=== PATIENT | female | born 1975 | race Caucasian/White ===

== ENCOUNTER → 2018-02-24 | Outpatient (CLI) | payer OTHER ==
[~2018-02-24] MED LIST: AMBIEN 10 MG TA10 MG PO; AMBIEN 5 MG TABL5 M1 PO; AUGMENTIN 875875 MG PO; B12; BACTROBAN22 GM TOP; BIOTIN5 M1 PO; DEXAMETHASONE 44 M1 PO; HYDROCODON-ACE1 EACH PO; HYDROCODONE-AP1 EAC6 PO; LEXAPRO20 MG PO; MOBIC15 MG PO; MOBIC7.5 MG PO; NOLVADEX20 MG PO; NORCO 5-325 TA1 EACH PO; ORPHENADRINE PO; PERCOCET PO; RELAFEN750 MG PO; SENNA-LAX8.6 MG PO; TOMOXIFEN PO; TOPAMAX50 MG PO; TRAMADOL 50 MG50 MG PO; VALIUM5 MG PO; VENLAFAXIN75 MG/1 T2 PO; VITAMIN D 5050000 I1 PO; VITAMIN D3400 UNIT; XANAX 0.5 MG0.5 M1 PO; XANAX 0.5 MG0.5 MG PO
--- NOTE | 2018-02-26 09:51 | PAINCON ---
[address] [address] PAIN MANAGEMENT CONSULTATION Name: DOMINGO BECKWITH Room: [facility] Abdalla#: [id number] Admission: 02/24/18 Attend Phys: Nicolette Ervin Discharge: Date of : 73 Report #: [id number] THIS REPORT FOR: //name// CC: Graciela Alcantara DATE OF SERVICE: 02/24/2018 The patient is a 43-year-old female being treated for cervical radiculopathy, now has appeared to be a component of cervical spondylosis. She was last seen in the pain clinic 01/20/2018. Continued on hydrocodone for pain. She prior had a cervical epidural injection in 06/2017. Had very good relief of radicular symptoms for about 6 months, pain has begun to recur. Prior cervical injection 11/05/2016 had afforded relief for about 6 months as well. The patient returns to pain clinic today noting pain has recurred, though it is primarily in the neck and upper shoulders. PHYSICAL EXAMINATION: Actually shows tenderness to palpation at the base of the cervical spine. There is really no overlying muscle spasm. Appears to be more facet related pain. She has again prior had more radicular symptoms, though the radicular component seems to be fairly nominal. Upper extremity strength is symmetric. Hand grasp is good. Cervical range of motion again modestly limited, modestly positive Lhermitte's but the primary continuous pain concern is more at the base of the spine and more exacerbated with axial loading. MRI is somewhat dated from 2012. It did show at that time a broad-based central disk protrusion at C6-C7. Given ongoing pain symptoms and component of what appears to be some cervical spondylosis, we will request authorization for MRI of the cervical spine. We will see the patient after diagnostic study and move forward with consideration for facet joint injection under fluoroscopy versus a repeat cervical epidural injection depending on clinical exam and diagnostic findings at that time. We reviewed the fact that opiate medications are being used to provide analgesia adequate to support activities of daily living, not attempting to achieve a specific pain score on the 0-10 Visual Analog Scale. The current opiate medications are providing sufficient analgesia to allow the patient to participate in activities of daily living. The patient is not exhibiting any aberrant behavior suggestive of drug diversion. The patient is not having any adverse reactions to medications. The patient is not suffering from daytime somnolence or mental acuity changes. The patient is managing opiate-induced constipation with appropriate ezrd-wyg-lfircnz agents and dietary considerations. The patient was counseled on concern for caution with operating a motor vehicle [place] [address] PAIN MANAGEMENT CONSULTATION Name: DOMINGO BECKWITH Room: [facility] Abdalla#: [id number] Admission: 02/24/18 Attend Phys: Nicolette Ervin Discharge: Date of : 73 Report #: [id number] A physical exam was performed and the patient's functional status was evaluated. All patients with back pain were advised against the bed rest greater than 4 days and were advised to return to normal activities. Pain score assessment was noted and the treatment plan was reviewed with the patient. All current medications, both prescribed and OTC were reviewed and reconciled on the electronic medical record. Tobacco screening was accomplished and smoking cessation was advised when indicated. BMI was noted and diet/exercise modification was recommended for all patients following outside normal parameters. I reviewed with the patient today their responsibilities to safeguard prescription medications, reviewed their responsibility to utilize medications only as prescribed by the physician. They are to seek and receive pain medications only from 1 physician group ( [facility]). They are to use 1 pharmacy and keep the clinic informed if they change pharmacies. Their responsibilities include making followup visits in a timely fashion and to avoid abrupt discontinuation of medication usage. Their responsibilities further include bringing their medications (bottles from the pharmacy with residual pills) to the visit for possible confirmation of pill counts and the patient understands it is their responsibility to submit to random drug screens to ensure both that the medications prescribed are present, and that no other controlled substances are present. All prescriptions provided today were generated electronically. Taken the liberty of writing for hydrocodone 5/325 one tablet 3-4 times a day, limit 100 tablets for 30 days. I wrote for prescription to release today and 4 weeks. We will continue meloxicam 15 mg 1 a day, 60 tablets with 3 refills. Discharged in good and stable condition. Follow up after MRI. <ELECTRONICALLY SIGNED> By: Julien Alcantara DO 02/26/18 0951 [id number] [id number] Alcantara DO /ramón
== END ==
LOC: M.PC 02:33
DX: M47.22 Other spondylosis with radiculopathy, cervical region (principal)

== ENCOUNTER → 2018-03-31 | Outpatient (CLI) | payer OTHER ==
--- NOTE | 2018-04-05 08:35 | PAINCON ---
[address] [address] PAIN MANAGEMENT CONSULTATION Name: TANGDOMINGO T [id number] Admission: 03/31/18 Attend Phys: Nicolette Ervin Discharge: Date of : 73 Report #: [id number] THIS REPORT FOR: //name// CC: Graciela Alcantara DATE OF SERVICE: 03/31/2018 The patient is a very pleasant 43-year-old female, prior seen for symptomatic cervical radiculopathy and chronic pain syndrome. She was last seen in pain clinic back in January. Continued on low dose hydrocodone 5/325 one tablet 3-4 times a day, limit 100 tablets for 30 days. Typically, this lasts her a little longer. We repeated an MRI of the cervical spine due to ongoing cervical radicular symptoms, this was accomplished 03/06/2018. On comparing this to the prior 2012 study, there is a progressive moderate to severe disk degenerative changes at C6-C7 with moderate size disk demonstrating mass effect on the ventral cord, C5-C6 similarly notes canal narrowed to 0.6 cm. PHYSICAL EXAMINATION: Shows positive Lhermitte's sign with pain in the neck, shoulder and arms burning dysesthesia. She rates 7-8 on VAS. PHYSICAL EXAMINATION: Shows 5 feet 6 inches, 189 pounds female, BMI is 30 kilograms per meter squared. Blood pressure 139/85, pulse 77, respirations are 18. Hand grasp is symmetric. ASSESSMENT AND RECOMMENDATIONS: 1. Symptomatic cervical radiculopathy clinical exam and history. Recommendation is repeat cervical projection fluoroscopy today. 2. Acute exacerbation of cervical radicular symptoms, chronic neuropathic pain requiring complex medication management. Recommendation is renew hydrocodone 5/325, one tablet 3-4 times a day, limit 100 tablets for 30 days. I have taken the liberty of writing for 2 months of current medication. 3. Symptomatic cervical radiculopathy. Procedure, cervical epidural injection under fluoroscopy. PROCEDURE NOTE: After written and informed consent was obtained including risk of dural puncture, spinal cord trauma, paralysis and increased pain, the patient was taken to the fluoroscopy suite and placed in the prone position, with appropriate abdominal bolstering, neck was flexed, palms under the thighs. Skin was prepped with ChloraPrep. Sterile draping was applied. Skin wheal with 1% Xylocaine was raised. A 22-gauge 3-1/2 inch epidural Tuohy needle was placed via a midline approach at the C7-T1 interspace, advanced under biplanar fluoroscopy using continuous loss of resistance. With appropriate loss of resistance at the expected depth on lateral view, the glass loss of resistance syringe was disconnected. A low volume extension tubing was connected to the needle and a 5 mL syringe. Negative aspiration for cerebrospinal [place] [address] PAIN MANAGEMENT CONSULTATION Name: DOMINGO BECKWITH Stephen Room: [facility] Abdalla#: [id number] Admission: 03/31/18 Attend Phys: Nicolette Ervin Discharge: Date of : 73 Report #: [id number] was noted. A 1 mL of Omnipaque was injected which showed spread within the epidural space on biplanar fluoroscopy. This was followed with 80 mg of triamcinolone plus 1 mL of 1.5% preservative Xylocaine. Needle was withdrawn to the interspinous ligament, 0.5 mL of Xylocaine was used to flush the needle. The needle was then completely withdrawn. The area was cleansed. Band-Aid was applied. The patient was allowed to move off the procedure table and ambulated to the recovery room, monitored for an appropriate period of time, discharged in good and stable condition. <ELECTRONICALLY SIGNED> By: Julien Alcantara DO 04/05/18 0835 1431 [id number] Alcantara DO /nt
== END | disposition home or self-care (01) ==
LOC: M.PC 03:02
DX: M54.12 Radiculopathy, cervical region (principal); G89.4 Chronic pain syndrome; Z79.891 Long term (current) use of opiate analgesic; Z88.2 Allergy status to sulfonamides; Z91.040 Latex allergy status; Z88.8 Allergy status to other drugs, medicaments and biological substances; Z79.899 Other long term (current) drug therapy

== ENCOUNTER → 2018-05-26 | Outpatient (CLI) | payer OTHER ==
--- NOTE | 2018-05-27 07:27 | PAINCON ---
[address] [address] PAIN MANAGEMENT CONSULTATION Name: DOMINGO BECKWITH Room: [facility] Rm#: [id number] Admission: 05/26/18 Attend Phys: Nicolette Ervin Discharge: Date of : 73 Report #: [id number] THIS REPORT FOR: //name// CC: Graciela Alcantara The patient is a very pleasant 43-year-old female, long treated by myself. She was initially treated for symptomatic cervical radiculopathy. Cervical epidural injection back in June 2017. She has been managed with hydrocodone 10/325 one tablet 3-4 times a day, limit 100 tablets for 30 days. Last seen in the pain clinic on 03/31/2018. We did a single epidural injection at that time with some incremental improvement of right-sided pain, still has pain in the neck and left side. She has a burning dysesthesia in the neck and shoulder pain is exacerbated with cervical range of motion. PHYSICAL EXAMINATION: Shows a pleasant 43-year-old female, BMI is 30.3 kilograms per meter squared. Blood pressure 155/81, pulse 90S, respirations 16. Rates her subjective pain score 5-6 on a VAS. Positive Lhermitte's. Slightly decreased limited range of motion, pain radiating into the axilla, slight decreased deltoid strength. Diagnostic findings from 03/16/2018 notes C5-C6 to have a new diffuse large posterior disk bulge with mass effect on the cord, thecal sac narrowed to 0.6 cm. The level below the C6-C7 has moderate to severe degenerative disk changes, which also has progressed since the prior study (compared to study 03/08/2013). ASSESSMENT: Symptomatic cervical radiculopathy by clinical exam and history. RECOMMENDATIONS: 1. Repeat epidural injection under fluoroscopy today. 2. Continue current medication including meloxicam 15 mg 1 a day and hydrocodone 5/325. The patient was given a renewal of her hydrocodone prescription at last visit. We will have her follow up in 1 month to reevaluate efficacy of interventional therapy. She will see Dr. Puma Wyatt. May require referral to Neurosurgery and a repeat cervical epidural injection depending on clinical exam. May require renewal of medication as well. ASSESSMENT: Symptomatic cervical radiculopathy. PROCEDURE: Cervical epidural injection under fluoroscopy. PROCEDURE NOTE: After written and informed consent was obtained including risk of dural puncture, spinal cord trauma, paralysis and increased pain, the patient was taken to the fluoroscopy suite and placed in the prone position, with appropriate abdominal bolstering, neck was flexed, palms [place] [address] PAIN MANAGEMENT CONSULTATION Name: DOMINGO BECKWITH Room: [facility] Abdalla#: [id number] Admission: 05/26/18 Attend Phys: Nicolette Ervin Discharge: Date of : 73 Report #: [id number] Skin was prepped with ChloraPrep. Sterile draping was applied. Skin wheal with 1% Xylocaine was raised. A 22-gauge 3-1/2 inch epidural Tuohy needle was placed via a midline approach at the C7-T1 interspace, advanced under biplanar fluoroscopy using continuous loss of resistance. With appropriate loss of resistance at the expected depth on lateral view, the glass loss of resistance syringe was disconnected. A low volume extension tubing was connected to the needle and a 5 mL syringe. Negative aspiration for cerebrospinal fluid or blood was noted. A 1 mL of Omnipaque was injected which showed spread within the epidural space on biplanar fluoroscopy. This was followed with 80 mg of triamcinolone plus 1 mL of 1.5% preservative Xylocaine. Needle was withdrawn to the interspinous ligament, 0.5 mL of Xylocaine was used to flush the needle. The needle was then completely withdrawn. The area was cleansed. Band-Aid was applied. The patient was allowed to move off the procedure table and ambulated to the recovery room, monitored for an appropriate period of time, discharged in good and stable condition. <ELECTRONICALLY SIGNED> By: Julien Alcantara DO 05/27/18 0727 1316 10Julien Alcantara DO /nt
== END | disposition home or self-care (01) ==
LOC: M.PC 05:03
DX: M54.12 Radiculopathy, cervical region (principal); G89.29 Other chronic pain; Z98.890 Other specified postprocedural states; Z79.899 Other long term (current) drug therapy; Z79.891 Long term (current) use of opiate analgesic; Z91.040 Latex allergy status; Z88.2 Allergy status to sulfonamides; Z88.8 Allergy status to other drugs, medicaments and biological substances

== ENCOUNTER → 2018-07-15 | Outpatient (CLI) | payer OTHER ==
--- NOTE | 2018-08-06 17:38 | PAINCON ---
[address] [address] PAIN MANAGEMENT CONSULTATION Name: TANGDOMNIGO T Room: [facility] Abdalla#: [id number] Admission: 07/15/18 Attend Phys: Nicolette Ervin Discharge: Date of : 73 Report #: [id number] THIS REPORT FOR: //name// CC: CHELSEA Morales DATE OF SERVICE: 07/15/2018 FOLLOWUP HISTORY: Neck pain with pain radiating down to the arms, hands. HISTORY OF PRESENT ILLNESS: The patient is a 43-year-old female who has been followed in the pain clinic for a number of years by Dr. Julien Alcantara. This is my first visit with the patient. She has been treated in the past for symptomatic cervical radiculopathy. She has undergone cervical epidural steroid injections and gleaned them beneficial. She also has been helped with use of hydrocodone 3-4 tablets daily. She has undergone a cervical epidural steroid injection and feels that her pain has returned to the level she would like to proceed with another. She has some burning dysesthesias in her neck and shoulder and exacerbated with cervical range of motion. After the last injection in 04/2018, she noted greater than 75% improvement. Rates her pain as a 2-3. She has continued to use hydrocodone and meloxicam to help curtail her pain. She would like to have her medications renewed. The patient has returned to the pain clinic for renewal of her pain scrips. ALLERGIES: PHENYLPROPANOLAMINE, PSEUDOEPHEDRINE, DIPHENHYDRAMINE, TRIPELENNAMINE, TRIPROLIDINE, CLEMASTINE, SULFA, MORPHINE, MENTHOL, PREDNISONE, LATEX, FENTANYL. MEDICATIONS: Vitamin D3 400 2000 units daily, vitamin D 50,000 international units weekly, hydrocodone 5/325 one p.o. q. 4-6 hours p.r.n., Mobic 15 mg daily, tamoxifen 20 mg, Effexor 75 mg. PAST MEDICAL HISTORY: Generally unremarkable. PAST SURGICAL HISTORY: Left hand ganglion cyst removal in 1996, right hand ganglion cyst removal in 1998. 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 REVIEW OF SYSTEMS: Headaches, hearing loss/ringing in the ears, palpitations, varicose veins, fatigue, frequent lightheadedness, dizziness, numbness and tingling sensation. LABORATORY DATA: MRI of the lumbar spine dated 03/16/2008. 1. C5/C6 moderate degenerative loss of [place] [address] PAIN MANAGEMENT CONSULTATION Name: DOMINGO BECKWITH Stephen Room: [facility]#: [id number] Admission: 07/15/18 Attend Phys: Nicolette Ervin Discharge: Date of : 73 Report #: [id number] previous with new diffuse large posterior disk bulge with a mass effect on the ventral cord. Both foramen are approximately moderately narrowed. Thecal sac 0.6 cm AP. 2. C6-C7 icddiqel-zn-kmowli degenerative disk space narrowing has progressed since previously with circumferential moderate size disk bulge demonstrating mass effect on the ventral cord. Both foramina are moderately narrowed. Thecal sac 0.7 cm AP. 3. C7/T1 intervertebral disk facets and foramen appear normal. Thecal sac 0.9 cm. PAIN CLINIC ASSESSMENT: 1. Osteoarthritis/rheumatoid arthritis. The patient has not been treated for osteoarthritis and rheumatoid arthritis. 2. Height 5 feet 6 inches, weight 185 pounds, BMI is 29.9. VITAL SIGNS: Blood pressure 133/72, heart rate 78, respiratory rate 16, room air saturation 97%, temperature 98.4. Pain score 2-3/10. 3. Fall risk. The patient has not fallen in the last 3 months. 4. Blood thinner. The patient is not on blood thinning medication. 5. History of hypertension. The patient has not been treated for hypertension. 6. Opioid therapy greater than 6 weeks. The patient does receive hydrocodone from 1 source of pain clinic. 7. Risk assessment tool. 8. Functional assessment tool. 9. Recreational drug use. The patient stopped smoking in 2003. Smoked one and half pack of cigarettes per day for 20 years. Alcohol monthly. PHYSICAL EXAMINATION: GENERAL: The patient is a well-developed, well-nourished white female. Appears her stated age. She is alert and oriented x 3. Affect is appropriate. Speech is fluent. HEENT: Normocephalic, atraumatic. Extraocular eye muscles intact. Sclerae nonicteric. NECK: With some soreness. Deep tendon reflexes are +2 for the biceps, trace on the knees, trace +1 on the ankles. The patient without significant scoliosis, kyphosis or lordosis. Muscle chaplaincy strength is judged to be 5/5 for the major muscle groups in the upper extremity. IMPRESSION: History of cervical radiculopathy, which improves with cervical epidural steroid injections. RECOMMENDATIONS: We will continue with the patient's current use of hydrocodone 5/325 one p.o. 4-6 hours p.r.n. The patient will call us if [place] [address] PAIN MANAGEMENT CONSULTATION Name: DOMINGO BECKWITH Room: [facility]#: [id number] Admission: 07/15/18 Attend Phys: Nicolette Ervin Discharge: Date of : 73 Report #: [id number] We would like to thank you for letting us participate in her care. We hope she continues to improve. <ELECTRONICALLY SIGNED> By: Britany Wyatt MD 08/06/18 1738 1519 1906N. Puma Wyatt MD /nt
== END ==
LOC: M.PC 03-10 11:00
DX: M54.12 Radiculopathy, cervical region (principal)

== ENCOUNTER → 2018-09-09 | Outpatient (CLI) | payer OTHER ==
--- NOTE | 2018-09-13 10:30 | PAINCON ---
[address] [address] PAIN MANAGEMENT CONSULTATION Name: DOMINGO BECKWITH Room: [facility] Abdalla#: [id number] Admission: 09/09/18 Attend Phys: Britany Wyatt MD Discharge: Date of : 73 Report #: [id number] THIS REPORT FOR: //name// CC: Graciela Wyatt DATE OF SERVICE: 09/09/2018 FOLLOWUP COMPLAINT: Pain in the shoulders, neck, and mid back. FOLLOWUP HISTORY: The patient is a 43-year-old female, who has been followed in the pain clinic because of chronic pain. She has had some cervical problems. She has undergone cervical epidural steroid injections. She has gleaned benefits from these. She returns today indicating that she is having pain and discomfort in her neck in the midline area as well as some pain in the left and the right shoulder areas. She feels that an injection to the trigger point areas might be helpful. She does continue to have some burning dysesthesias in her neck and shoulder. She notes some limited rotation in range of motion because of this pain and discomfort. She continues to use hydrocodone. She feels that this is helpful. She feels that a trigger point might be helpful at this juncture. She is not sure, but has heard about fibromyalgia and wonders whether or not this is a problem for her. CURRENT MEDICATIONS: The patient is on vitamin D3 daily, vitamin D 50,000 international units weekly, hydrocodone 5/325 one p.o. q.4-6 hours p.r.n., Mobic 15 mg daily, tamoxifen 20 mg, and Effexor 75 mg. ALLERGIES: THE PATIENT IS ALLERGIC TO PHENYLPROPANOLAMINE, PSEUDOEPHEDRINE, DIPHENHYDRAMINE, TRIPELENNAMINE, TRIPROLIDINE, CLEMASTINE, SULFA, MORPHINE, MENTHOL, PREDNISONE, LATEX, AND FENTANYL. PAIN CLINIC ASSESSMENT AND PQRS: 1. Osteoarthritis/rheumatoid arthritis. The patient is not being treated for rheumatoid arthritis or osteoarthritis. 2. Pain score is 4/10. 3. Fall risk. The patient has not fallen in the last 3 months. 4. Blood thinner. The patient is not on a blood thinning medication. 5. History of hypertension. The patient is not being treated for hypertension. 6. Opioid therapy greater than 6 weeks. The patient does receive hydrocodone from 1 source, pain clinic. 7. Risk assessment tool. 8. Functional assessment tool. 9. Recreational drug use. The patient denied. 10. The patient stopped smoking in 2003. She smokes 1/2 pack of cigarettes a day for the past 20 years. 11. Alcohol, [place] [address] PAIN MANAGEMENT CONSULTATION Name: DOMINGO BECKWITH [id number] Admission: 09/09/18 Attend Phys: Britany Wyatt MD Discharge: Date of : 73 Report #: [id number] PHYSICAL EXAMINATION: GENERAL: The patient is a well-developed and well-nourished white female. She appears her stated age. She is alert and oriented x 3. Her affect is appropriate. Speech is fluent. Height is 5 feet 6 inches, weight is 180 pounds, and BMI is 30. VITAL SIGNS: Blood pressure is 146/82, heart rate is 71, respiratory rate is 16, room air saturation is 97%, and temperature is 98.2. HEENT: Normocephalic, atraumatic. Extraocular eye muscles intact. Sclerae nonicteric. NECK: The patient has some soreness in the midline area at approximately T2. The patient also has some soreness in the left rhomboid area as well as pain and discomfort in the right rhomboid area. Deep tendon reflex does reproduce pain and discomfort she has in these areas. Overall, peoplesoft hrms developer strength is 5/5 for the major muscle groups in the upper extremity. Lower extremity muscle strength is judged to be 5/5 for the major muscle groups. IMPRESSION: 1. History of cervical radiculopathy, which has improved after cervical epidural steroid injections. 2. Myofascial pain involving the left and right rhomboid area as well as midline T2/T3 to palpation. RECOMMENDATIONS: We have discussed treatment options with the patient. She was wondering whether or not she has fibromyalgia. We have explained that most people with fibromyalgia have a number of at least 18 trigger points. She does not have those findings. She does have some areas of mild myofascial discomfort. She is having pain in the upper shoulder area on the left with rhomboids as well as about T2/T3 to palpation with midline pain and discomfort as well as some pain and discomfort on the right rhomboid area. Palpation in these areas reproduced her discomfort. The patient would like to proceed with trigger point injections to affected area. She does also complain of some burning sensation. We will consider possibility of trying gabapentin. She has not had this medication in the past. PROCEDURE NOTE: The patient was taken to the procedure area. Risks and benefits of the procedure were discussed. They include but are not limited to infection, increased muscle soreness. No improvement in muscle soreness, nerve damage, and pneumothorax. The patient elects to proceed. The patient was placed in the sitting position perpendicular to the bed. A chair was placed under her feet. Her back was sterilely prepped with a chlorhexidine solution. Trigger points were noted in the right as well as the left rhomboid area. A trigger point was noted in the midline area near T1/T3. Palpation reproduces discomfort. A 25-gauge needle was then advanced into the midline area. A total of 40 mg of triamcinolone with 10 mL of 0.5% bupivacaine was infiltrated in this area. The patient responded that indeed we were [place] [address] PAIN MANAGEMENT CONSULTATION Name: TANGDOMINGO Room: [facility]#: [id number] Admission: 09/09/18 Attend Phys: Britany Wyatt MD Discharge: Date of : 73 Report #: [id number] discomfort from the trigger points. Her left rhomboid area was identified, trigger point was noted. A 25-gauge needle was then advanced into this area. Aspiration did not reveal any air. A total of 8ml 0.5% bupivacaine was injected. The patient tolerated the second trigger point well. The third trigger point in the right rhomboid area was identified. A 25-gauge needle was then advanced into the area. The patient states this reproduced the discomfort. A total of 20 mg of triamcinolone and 8 mL of 0.5% bupivacaine was injected. The patient tolerated the procedure well. There were no complications. She remained in the pain clinic for an appropriate amount of time. She will follow up in the future as needed. We would like to thank you for letting us to participate in her care. We hope she continues to improve. She will call us if she has any complaints or has development of any breathing problems. <ELECTRONICALLY SIGNED> By: Britany Wyatt MD 09/13/18 1030 [id number]. Puma Wyatt MD /PMT
== END | disposition home or self-care (01) ==
LOC: M.PC 05:18
DX: M79.18 Myalgia, other site (principal); M54.12 Radiculopathy, cervical region; Z98.890 Other specified postprocedural states; Z79.891 Long term (current) use of opiate analgesic; Z91.040 Latex allergy status; Z88.8 Allergy status to other drugs, medicaments and biological substances; Z88.2 Allergy status to sulfonamides; Z79.899 Other long term (current) drug therapy

== ENCOUNTER → 2018-10-07 | Outpatient (CLI) | payer OTHER ==
--- NOTE | ~2018-10-07 | PAINCON ---
[address] [address] PAIN MANAGEMENT CONSULTATION Name: DOMINGO BECKWITH Room: [facility] Abdalla#: [id number] Admission: 10/07/18 Attend Phys: Britany Wyatt MD Discharge: Date of : 73 Report #: [id number] THIS REPORT FOR: //name// CC: Graciela Wyatt DATE OF SERVICE: 10/07/2018 FOLLOWUP COMPLAINT: Here for an injection. FOLLOWUP HISTORY: The patient is a 43-year-old female who has been seen in the pain clinic. She was seen in August. She underwent trigger point injections because of pain and discomfort. She has noticed that the pain is more problematic today. Continues to have pain that is radiating down into her upper neck, back and arms. She feels that the pain at this juncture is more from cervical radicular pain rather than trigger point pain. She has returned today with the thoughts of undergoing a cervical epidural steroid injection to help decrease pain and discomfort she is experiencing. She rates it as 5/10 at this juncture. She continues to use Silvis and Mobic to help decrease the pain. Feels her pain is more widespread at this juncture than it was in August. ALLERGIES: PHENYLPROPANOLAMINE, PSEUDOEPHEDRINE, DIPHENHYDRAMINE, TRIPELENNAMINE, TRIPROLIDINE, CLEMASTINE, SULFA, MORPHINE, MENTHOL, PREDNISONE, LATEX, FENTANYL. PAIN CLINIC ASSESSMENT AND PQRS: 1. Osteoarthritis/rheumatoid arthritis. The patient is not being treated for rheumatoid arthritis or osteoarthritis. 2. The height 5 feet 6 inches, weight 184 pounds. The BMI is 30. 3. Vital signs: Blood pressure 137/84, heart rate 70, respiratory rate 16, room air saturation 99%. Temperature 98.0. 4. Pain intensity 5/10. 5. Fall risk. The patient has not fallen in the last 3 months. 6. Blood thinner. The patient is not on a blood thinning medication. 7. Hypertension. The patient is not being treated for hypertension. 8. Opiate therapy greater than 6 weeks. The patient does receive hydrocodone through the pain clinic. 9. Risk assessment tool, low for opioid use. 10. Functional assessment tool. 11. Recreational drug use. The patient denies use of recreational drugs. 12. Tobacco: The patient stopped smoking in 2003. Smokes 1/2 pack of cigarettes per day for the past 20 years. 13. Alcohol: The patient denies other than monthly use of alcohol. PHYSICAL EXAMINATION: GENERAL: The patient is a well-developed, well-[place] [address] PAIN MANAGEMENT CONSULTATION Name: DOMINGO BECKWITH [id number] Admission: 10/07/18 Attend Phys: Britany Wyatt MD Discharge: Date of : 73 Report #: [id number] her stated age. She is alert and oriented x 3. Her affect is appropriate. Speech is fluent. HEENT: Normocephalic, atraumatic. Extraocular eye muscles intact. NECK: With some soreness in the midline area. Has some pain and discomfort that radiates in the neck and in the area of rhomboid down into her shoulders. IMPRESSION: 1. History of cervical radiculopathy, improved in the past after cervical epidural steroid injections. 2. Myofascial pain. RECOMMENDATIONS: We discussed treatment options with the patient. At this juncture, we will proceed with a cervical epidural steroid injection. Risks and benefits again of the procedure were discussed. They could include but are not limited to infection, increased muscle soreness, headache, worsening of pain, no improvement in pain and the patient elects to proceed. PROCEDURE NOTE: The patient was taken to the procedure area. She was assisted in getting on examination table. A pillow was placed under her shoulders to improve positioning. Fluoroscopy using anterior, posterior as well as lateral viewing were implemented. At C6-C7, the area had been sterilely prepped with Betadine. A 25-gauge needle was then advanced into this area and infiltrated with 0.25% bupivacaine. A 17-gauge Tuohy with loss of resistance technique was used to gain access to the epidural space. There was no CSF, heme or paresthesia. A total of 120 mg of triamcinolone was injected. The patient tolerated the procedure well. Fluoro time of about 15 seconds was used. The patient was then taken to the recovery room. She remained for an appropriate amount of time. She will follow up in the future as needed. We would like to thank you for letting us participate in her care. We hope she continues to improve. By: [id number]. Puma Wyatt MD /DREW
== END | disposition home or self-care (01) ==
LOC: M.PC 09-28 05:06
DX: M54.12 Radiculopathy, cervical region (principal); M79.18 Myalgia, other site; Z88.2 Allergy status to sulfonamides; Z91.040 Latex allergy status; Z88.8 Allergy status to other drugs, medicaments and biological substances; Z79.891 Long term (current) use of opiate analgesic; Z98.890 Other specified postprocedural states

== ENCOUNTER → 2018-11-04 | Outpatient (CLI) | payer OTHER ==
--- NOTE | 2018-11-05 17:20 | PAINCON ---
[address] [address] PAIN MANAGEMENT CONSULTATION Name: DOMINGO BECKWITH Room: [facility] Abdalla#: [id number] Admission: 11/04/18 Attend Phys: Britany Wyatt MD Discharge: Date of : 73 Report #: [id number] THIS REPORT FOR: //name// CC: Graciela Wyatt DATE OF SERVICE: 11/04/2018 FOLLOWUP: The pain increased when I was at the gym. I felt a pop in my neck and I feel more pain down in my arm on the left side. Right side was the one that was a problem before. HISTORY: The patient is a 43-year-old female who has been seen in the pain clinic. She has undergone cervical epidural steroid injection. She found that this was beneficial. She had been experiencing some pain that was radiating down into her right arm. After the last cervical epidural steroid injection she noted improvement. She states that she has been active in the gym. She was doing some exercises on a "bar similar to a ballerina and noticed some popping sensation in her upper back involving the left shoulder blade area. She also engages in some low impact dense. She states that she does not do a significant amount of jumping. Overall, she has noted some worsening of her pain. She would like to consider another cervical epidural steroid injection in that she gleaned benefit from the last injection. She has had no complications from it. Continues to use [place] and Mobic. ALLERGIES: PSEUDOEPHEDRINE, DIPHENHYDRAMINE, PHENYLPROPANOLAMINE, TRIPELENNAMINE, TRIPROLIDINE, CLEMASTINE, SULFA, MORPHINE, MENTHOL, PREDNISONE, LATEX, FENTANYL. MEDICATIONS: Biotin 5 mg daily, vitamin D3 400 units, vitamin D3 chewable tabs, vitamin D 50,000 international units, hydrocodone 5/325 one p.o. q.4-6 hours p.r.n. pain, Mobic 15 mg, Nolvadex estrogen katheryn 20 mg, Effexor 75 mg. PAIN CLINIC ASSESSMENT/PQRS: 1. Osteoarthritis/rheumatoid arthritis. The patient is not being treated for rheumatoid arthritis or osteoarthritis. 2. Height 5 feet 6 inches, weight 188 pounds, BMI is 30. 3. Vital signs: Blood pressure 151/82, heart rate 77, respiratory rate 16, room air saturation 98%, temperature 98.3. 4. Pain intensity 8/10. 5. Fall risk. The patient has not fallen in the last 3 months. 6. Blood thinner. The patient is not on a blood thinning medication. 7. Hypertension. The patient has not been treated for hypertension. 8. Opioid greater than 6 weeks. The patient received hydrocodone through the pain clinic. 9. Risk assessment tool, [place] [address] PAIN MANAGEMENT CONSULTATION Name: DOMINGO BECKWITH Room: [facility]#: [id number] Admission: 11/04/18 Attend Phys: Britany Wyatt MD Discharge: Date of : 73 Report #: [id number] 10. Functional assessment tool. 11. Recreational drug use. The patient denies use of recreational drugs. 12. Tobacco: The patient stopped smoking in 2003. Smokes 1-1/2 pack of cigarettes per day, smoked for 20 years. 13. Alcohol: The patient denies use of alcohol other than a monthly basis. PHYSICAL EXAMINATION: GENERAL: The patient is a well-developed, well-nourished white female. Appears her stated age. She is alert and oriented x 3. Affect is appropriate. Speech is fluent. HEENT: Normocephalic, atraumatic. Extraocular muscles intact. Sclerae nonicteric. Mucous membranes are moist. The patient has some pain and discomfort in her left shoulder with pain that radiates down into the left arm. Also, complains of pain in the left scapular area. The posterior area near the rhomboids. The patient without significant scoliosis, kyphosis or lordosis. Lower extremity muscle strength is judged to be 5/5 for the major muscle groups. IMPRESSION: 1. History of cervical radiculopathy, improved after cervical epidural steroid injection. 2. Worsening of pain after a pop, which she felt in exercising. The patient received 50% improvement from epidural steroid injection at the last denture. 3. Myofascial pain. RECOMMENDATIONS: We discussed treatment options with the patient. We explained to the patient the possible benefits of use of a Medrol Dosepak. At this point, the patient declines. She would like to proceed with a cervical epidural steroid injection to help with the pain and discomfort, which is still problematic and involving her left shoulder. The patient sits with her head leaning to the left because of straightening of her neck or leaning to the left causes worsening of pain and could note some increased pain radiating down into her left shoulder and arm. We have discussed the possible complication of the procedure, which could include infection, worsening of pain, no improvement in pain and the patient elects to proceed. She will return to the pain clinic after she has been precertified. At that time, she will then undergo another epidural steroid injection to help control the pain, which she is experiencing, which has been exacerbated after activity in the gym. <ELECTRONICALLY SIGNED> By: Britany Wyatt MD 11/05/18 1720 [id number]. Puma Wyatt MD /nt
== END ==
LOC: M.PC 04:42
DX: M54.12 Radiculopathy, cervical region (principal); M79.18 Myalgia, other site

== ENCOUNTER → 2019-01-04 | Outpatient (CLI) | payer OTHER ==
--- NOTE | ~2019-01-04 | PAINCON ---
[address] [address] PAIN MANAGEMENT CONSULTATION Name: TANGDOMINGO T Room: [facility] Abdalla#: [id number] Admission: 01/04/19 Attend Phys: Britany Wyatt MD Discharge: Date of : 73 Report #: [id number] THIS REPORT FOR: //name// CC: Graciela Wyatt DATE OF SERVICE: 01/04/2019 FOLLOWUP COMPLAINT: Here for medication renewal. HISTORY: The patient is a 43-year-old female who has been followed in the pain clinic. She complained of some pain and discomfort in her neck. She has been experiencing some discomfort in the upper neck area. She continues to exercise. At this juncture, she has noted that her pain has improved. Rates it as a 1/10. Still has some pain in the middle of her neck. Continues with her yoga practice. She has undergone epidural steroid injections. Continues to be active in her gym. Denies any sensory changes in her shoulders, arms, or hands. Overall, things are going reasonably well. She feels that the hydrocodone medication is beneficial as well as use of the nonsteroidal anti-inflammatory medication, Mobic 15 mg daily. She has returned with the desire to have her medications renewed. ALLERGIES: PSEUDOEPHEDRINE, DIPHENHYDRAMINE PHENYLPROPANOLAMINE, TRIPELENNAMINE, TRIPROLIDINE, CLEMASTINE, SULFA, MORPHINE, MENTHOL, PREDNISONE, LATEX, AND FENTANYL. CURRENT MEDICATIONS: Biotin 5 mg daily, vitamin D3 400 units, vitamin D3 chewable tablets, vitamin D 50,000 international units, hydrocodone 5/325 one p.o. q. 4-6 p.r.n. pain, Mobic 15 mg, Nolvadex estrogen katheryn 20 mg, and Effexor 75 mg. PAIN CLINIC ASSESSMENT AND PQRS: 1. The patient is not being treated for osteoarthritis or rheumatoid arthritis. 2. Height 5 feet 6 inches, weight 191 pounds, BMI is 30. 3. Vital signs: Blood pressure 147/92, heart rate 74, respiratory rate 16, room air saturation is 98%, temperature 98. 4. Pain intensity 12/09. 5. Fall history: The patient has not fallen in the last 3 months. 6. Blood thinner. The patient is not on a blood thinning medication. 7. Hypertension. The patient is being treated for hypertension. 8. Opioids greater than 6 weeks. The patient receives her medication from one source, the pain clinic. 9. Risk assessment tool, low. 10. Functional assessment tool. 11. Recreational drug use. The patient denies use of recreational drugs. 12. Tobacco: The [place] [address] PAIN MANAGEMENT CONSULTATION Name: TANGDOMINGO Room: [facility]#: [id number] Admission: 01/04/19 Attend Phys: Britany Wyatt MD Discharge: Date of : 73 Report #: [id number] 13. Alcohol: The patient denies use of alcohol. PHYSICAL EXAMINATION: GENERAL: The patient is a well-developed, well-nourished white female. Appears her stated age. She is alert and oriented x 3. Her affect is appropriate. Speech is fluent. HEENT: Normocephalic, atraumatic. Extraocular eye muscles intact. Sclerae nonicteric. Mucous membranes are moist and the patient has some discomfort in the posterior portion of her neck. Overall, she is having reasonably good pain control. Is not complaining of any pain in the left or the right arm. Rhomboid areas are not problematic today, scapular area is not problematic today. The patient without significant scoliosis, kyphosis, or lordosis. Lower extremity muscle strength judged to be 5/5 for the major muscle groups. IMPRESSION: 1. History of cervical radiculopathy, improved with cervical epidural steroid injections. Pain currently 1. 2. Worsening of pain after a popping sensation, after exercising. This seems to have resolved. Overall, the patient is doing reasonably well. 3. Myofascial pain. RECOMMENDATIONS: We discussed the treatment options with the patient. We will continue with her current medication regimen. A script for hydrocodone 5/325 one p.o. t.i.d. /q.i.d. has been written with 100 tablets provided with hydrocodone and meloxicam 15 mg 60 tablets. The patient will call us if she has any concerns. We would like to thank you for letting us participate in her care. We hope she continues to improve. By: [id number]. Puma Wyatt MD /ramón
== END ==
LOC: M.PC 12-30 05:12
DX: M54.12 Radiculopathy, cervical region (principal); M79.18 Myalgia, other site; I10 Essential (primary) hypertension; Z79.899 Other long term (current) drug therapy

== ENCOUNTER → 2019-03-01 | Outpatient (CLI) | payer OTHER ==
--- NOTE | ~2019-03-01 | PAINCON ---
[address] [address] PAIN MANAGEMENT CONSULTATION Name: TANGDOMINGO T Room: [facility] Jevon.#: [id number] Admission: 03/01/19 Attend Phys: Britany Wyatt MD Discharge: Date of : 73 Report #: [id number] THIS REPORT FOR: //name// CC: Graciela Wyatt DATE OF SERVICE: 03/01/2019 FOLLOWUP COMPLAINT: Here for medication renewal. HISTORY: The patient is a 44-year-old female who has been followed in the pain clinic because of chronic pain in the cervical area. Overall, she feels that her pain is stable today. Rates it as a 2/10. Does have pain in the mid portion of her back. She is not having any significant amount of pain radiating down into her arms. The mid back area is most uncomfortable. Feels that she may have some sinus problems. The weather has changed. She noticed some congestion over the last few days since the pollen count has increased. She feels that her medications are helpful. She is not having any complications with them. No problems with the meloxicam. No GI complaints. Feels that the hydrocodone is helpful as well. 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 Notes some increased soreness as a result of this. She has returned today with a desire to have her medications renewed. ALLERGIES: PSEUDOEPHEDRINE, DIPHENHYDRAMINE, PHENYLPROPANOLAMINE, TRIPELENNAMINE, TRIPROLIDINE, CLEMASTINE, SULFA, MORPHINE, MENTHOL, PREDNISONE, LATEX, FENTANYL. CURRENT MEDICATIONS: Biotin 5 mg, vitamin D3 400 units, vitamin D 50,000 international units, hydrocodone 5/325 one p.o. every 4-6 hours p.r.n., Mobic 15 mg, Nolvadex estrogen katheryn 20 mg, and Effexor 75 mg. PAIN CLINIC ASSESSMENT/PQRS: 1. The patient is not being treated for osteoarthritis or rheumatoid arthritis. 2. Height 5 feet 6 inches, weight 186 pounds, BMI is 29.3. 3. VITAL SIGNS: Blood pressure 140/74, heart rate 79, respiratory rate 16, room air saturation 99%, temperature 98.7. 4. Pain score 2-3/10. 5. Fall history: The patient has not fallen in the last 3 months. 6. Blood thinner. The patient is not on a blood thinning medication. 7. Hypertension. The patient is being treated for hypertension. 8. Opioids greater than 6 weeks. The [facility]. 9. Risk assessment tool, low for opioid use. 10. Functional assessment tool. 11. Recreational drug use. The patient denies use of recreational drugs. 12. Tobacco: The patient denies use of tobacco and stopped in 02/2014. [place] [address] PAIN MANAGEMENT CONSULTATION Name: DOMINGO BECKWITH Room: [facility]#: [id number] Admission: 03/01/19 Attend Phys: Britany Wyatt MD Discharge: Date of : 73 Report #: [id number] 13. Alcohol: The patient occasionally drinks alcoholic beverages on a bimonthly basis. PHYSICAL EXAMINATION: GENERAL: The patient is a well-developed, well-nourished white female. Appears her stated age. She is alert and oriented x 3. Her affect is appropriate. Speech is fluent. HEENT: Normocephalic, atraumatic. Extraocular eye muscles intact. Sclerae nonicteric. Mucous membranes are moist. NECK: Without adenopathy or JVD. Upper extremity muscle strength is judged to be 5-/5 for the major muscle groups in the upper extremity. LUNGS: Clear to auscultation. HEART: Regular rate. ABDOMEN: Nontender. Bowel sounds present. EXTREMITIES: Lower extremity muscle strength judged to be 5/5 for the major muscle groups in the lower extremity. IMPRESSION: 1. History of cervical radiculopathy, improved with cervical epidural steroid injection in the past. 2. Pain with a popping sensation after exercising. This seems to have improved. 3. Myofascial pain. RECOMMENDATIONS: We discussed treatment options with the patient. We will continue with her opioid medication. A script for meloxicam 15 mg 1 p.o. daily. The patient will monitor her GI tract for aspirin type discomfort. She will also continue with her hydrocodone 5/325 one p.o. t.i.d. as needed. We would like to thank you for letting us participate in her care. The patient is aware that opioid medications can become less effective over a period of time secondary to tolerance as well as some patients can develop dependence to these medications. She would like to continue with their use. She keeps them in a guarded area. By: [id number]. Puma Wyatt MD /nt
== END ==
LOC: M.PC 05:32
DX: G89.29 Other chronic pain (principal); I10 Essential (primary) hypertension; M54.9 Dorsalgia, unspecified; Z88.8 Allergy status to other drugs, medicaments and biological substances; Z88.5 Allergy status to narcotic agent; Z88.2 Allergy status to sulfonamides; Z91.040 Latex allergy status; Z79.899 Other long term (current) drug therapy; Z79.891 Long term (current) use of opiate analgesic

== ENCOUNTER → 2019-04-26 | Outpatient (CLI) | payer OTHER ==
--- NOTE | 2019-04-28 01:32 | PAINCON ---
[address] [address] PAIN MANAGEMENT CONSULTATION Name: DOMINGO BECKWITH Stephen Room: [facility] Rm#: [id number] Admission: 04/26/19 Attend Phys: Britany Wyatt MD Discharge: Date of : 73 Report #: [id number] THIS REPORT FOR: //name// CC: Graciela Wyatt DATE OF SERVICE: 04/26/2019 CHIEF COMPLAINT: Upper back and neck pain. HISTORY OF PRESENT ILLNESS: The patient is a 44-year-old female who has been followed in the pain clinic because of upper back and neck pain. She has had pain, which has been problematic over the years. Notes that over the last few weeks, her pain has become somewhat annoying. She has had some occasional flareups. Overall, pain is not as bad today. She rates it as a 2/10. Notes that pain is worse when she is not using her medications. She has had some pain that radiated down into her arms. The mid back can be uncomfortable as well. Notes that the pain has somewhat improved now that the weather has changed and warmed up. She denies any problems with use of meloxicam on her GI tract. Continues to work at home with activities of daily living. ALLERGIES: PSEUDOEPHEDRINE, DIPHENHYDRAMINE, PHENYLPROPANOLAMINE, TRIPELENNAMINE, TRIPROLIDINE, CLEMASTINE, SULFA, MORPHINE, MENTHOL, PREDNISONE, LATEX, FENTANYL. CURRENT MEDICATIONS: Biotin 5 mg, vitamin D3 400 units, vitamin D 50,000 international units, hydrocodone 5/325 q.4-6 hours p.r.n., Mobic 15 mg, Nolvadex estrogen katheryn 20 mg, Effexor 75 mg. PAIN CLINIC ASSESSMENT AND PQRS: 1. The patient is not being treated for osteoarthritis or rheumatoid arthritis. 2. Height 5 feet 6 inches, weight 185 pounds, BMI is 29.9. 3. Blood pressure 130/70, heart rate 73, respiratory rate 16, room air saturation 97%, temperature 98.2. 4. Pain intensity 01/09. 5. Fall history: The patient has not fallen in the last 3 months. 6. Blood thinner. The patient is not on a blood thinning medication. 7. Hypertension. The patient is being treated for hypertension. 8. Opioids greater than 6 weeks. The [facility]. 9. Risk assessment tool, low for opioid use. 10. Functional assessment tool. 11. Recreational drug use. The patient denies use of recreational drugs. 12. Tobacco: The patient denies use of tobacco, stopped smoking in 02/2014. 13. Alcohol: The patient occasionally [place] [address] PAIN MANAGEMENT CONSULTATION Name: DOMINGO BECKWITH Stephen [id number] Admission: 04/26/19 Attend Phys: Britany Wyatt MD Discharge: Date of : 73 Report #: [id number] PHYSICAL EXAMINATION: GENERAL: The patient is a well-developed, well-nourished white female. Appears her stated age. She is alert and oriented x 3. Her affect is appropriate. Speech is fluent. HEENT: Normocephalic, atraumatic. Extraocular eye muscles intact. Sclerae nonicteric. Mucous membranes are moist. NECK: Without adenopathy or JVD. LUNGS: Clear to auscultation. HEART: Regular rate. ABDOMEN: Nontender. Bowel sounds present. EXTREMITIES: Upper extremity muscle strength is judged to be 5-/5 for the major muscle groups in the upper extremity. IMPRESSION: 1. History of cervical radiculopathy, improved with cervical epidural steroid injections in the past. 2. Pain and a popping sensation in her neck with rotation. 3. Myofascial pain. RECOMMENDATIONS: We discussed treatment options with the patient. At this juncture, we will continue with her medication. She feels that the Meloxicam medications are working reasonably well. She is not having any GI complaints. She feels that the [place] medications were working and helpful as well. She does have some crunchy crackling in her neck with rotation. It is reproducible when she puts her neck in a certain position. There is no pain associated with this. There is no numbness or tingling associated with it. We have discussed the possibilities that it showed improve over time and just resolve. She will call us if she has any problems. We would like to thank you for letting us participate in her care. We hope she continues to improve. <ELECTRONICALLY SIGNED> By: Britany Wyatt MD 04/28/19 0132 [id number]. Puma Wyatt MD /[facility]
== END ==
LOC: M.PC 04:56
DX: M54.12 Radiculopathy, cervical region (principal); M79.10 Myalgia, unspecified site; R20.0 Anesthesia of skin

== ENCOUNTER → 2019-06-30 | Outpatient (CLI) | payer OTHER ==
[~2019-06-30] MED LIST changes: +HYDROCODON-ACE1 EAC7 PO
--- NOTE | ~2019-06-30 | PAINCON ---
[address] [address] PAIN MANAGEMENT CONSULTATION Name: CORTNEY BECKWITHJOANN Mithcell Room: [facility] MARILYN Abdalla#: [id number] Admission: 06/30/19 Attend Phys: Britany Wyatt MD Discharge: Date of : 73 Report #: [id number] THIS REPORT FOR: //name// CC: Graciela Wyatt DATE OF SERVICE: 06/30/2019 CHIEF COMPLAINT: Upper back and neck pain. I am having a migraine headache today. HISTORY: The patient is a 44-year-old female who has been followed in the pain clinic because of chronic pain. She has a history of cervical radiculopathy and chronic pain. Pain at this point is in the posterior portion of her neck and base of her head. She has noticed that her migraine headaches have been problematic. She gets about 3 migraine headaches a month. She still relates them to her monthly cycle. She has had chemotherapy, radiation and noticed that her migraines disappeared during the time of her chemotherapy. Now, the headaches have recurred pretty much on a monthly basis about 3 times per month. At this point, she would like to continue with her medications. She feels that the hydrocodone in conjunction with the meloxicam are beneficial. ALLERGIES: PHENYLPROPANOLAMINE, PSEUDOEPHEDRINE, DIPHENHYDRAMINE, TRIPELENNAMINE, TRIPROLIDINE, CLEMASTINE, SULFA, MORPHINE, , PREDNISONE, LATEX, FENTANYL. PAIN CLINIC ASSESSMENT/PQRS: 1. The patient is not being treated for osteoarthritis or rheumatoid arthritis. 2. Height 5 feet 6 inches, weight 184 pounds, BMI is 29.8. 3. Vital Signs: Blood pressure 152/102 with a migraine headache second blood pressure 151/96, heart rate 72, respiratory rate 16, room air saturation 97%, temperature 98.2. 4. Pain intensity 1-3/10 because of the migraine headache. 5. Fall history: The patient has not fallen in the last 3 months. 6. Blood thinner. The patient is not on a blood thinning medication. 7. Hypertension. The patient is being treated for hypertension. 8. Opioids greater than 6 weeks. The [facility]. 9. Risk assessment tool, low for opioid use. 10. Functional assessment tool. 11. Recreational drug use. The patient denies use of recreational drugs. 12. Tobacco: The patient denies use of tobacco, stopped smoking on 03/13/2019. 13. Alcohol: The patient occasionally drinks alcoholic beverage. PHYSICAL EXAMINATION: GENERAL: The patient is a well-developed, well-nour[place] [address] PAIN MANAGEMENT CONSULTATION Name: DOMINGO BECKWITH Room: [facility]#: [id number] Admission: 06/30/19 Attend Phys: Britany Wyatt MD Discharge: Date of : 73 Report #: [id number] her stated age. She is alert and oriented x 3. Her affect is appropriate. Speech is fluent. HEENT: Normocephalic, atraumatic. Extraocular eye muscles intact. Sclerae nonicteric. Mucous membranes are moist. NECK: Without adenopathy. The patient has pain and discomfort in the neck and shoulder area. Pain in the occipital area and complains of a migraine. LUNGS: Clear to auscultation. HEART: Regular rate. ABDOMEN: Nontender. Bowel sounds present. EXTREMITIES: Upper extremity muscle strength judged to be 5-/5 for the major muscle groups in the upper extremity. IMPRESSION: 1. History of cervical radiculopathy involving the cervical and treated with a cervical epidural steroid injection in the past. Pain and popping sensation in the neck with rotation. 2. Myofascial pain. 3. C5-C6 moderate disk space height with a large posterior disk bulge with mass effect on the ventral cord. Both foramen are approximately moderately narrowed. Thecal sac 0.6 cm AP. 4. C6-C7, moderate to severe degenerative disk space. Moderate size disk bulge demonstrating mass effect upon the ventral cord. Both foramen are moderately narrowed. Thecal sac 0.7 cm AP. 5. C7-T1 facet and foramen appear normal. Thecal sac 0.9 cm AP. RECOMMENDATIONS: We discussed treatment options with the patient. At this juncture, we will continue with her medications. She feels that the medications have been efficacious. We have rewritten a script for the hydrocodone medication. She will take it one tablet 5 mg one p.o. q.4-6 hours. Total of 100 tablets have been dispensed for the month. She will also continue with the meloxicam. She will monitor her blood. She will monitor her GI tract for GI upset. Hopefully, this medication will continue to be helpful. She takes one tablet daily. We will hope that her migraines continue to be helped with her current medical regimen. She will call us if she has any concerns with her medications. We would like to thank you for letting us participate in her care. We hope she continues to improve. We will continue to help control her medication with a complex medical management using opioids. By: [id number]. MD CINDY Cooper
== END ==
LOC: M.PC 05:16
DX: M50.122 Cervical disc disorder at C5-C6 level with radiculopathy (principal); M48.02 Spinal stenosis, cervical region; M79.18 Myalgia, other site; G43.909 Migraine, unspecified, not intractable, without status migrainosus; Z88.8 Allergy status to other drugs, medicaments and biological substances

== ENCOUNTER → 2019-08-25 | Outpatient (CLI) | payer OTHER ==
--- NOTE | ~2019-08-25 | PAINCON ---
[address] [address] PAIN MANAGEMENT CONSULTATION Name: TANGDOMINGO T Room: [facility] Rm#: [id number] Admission: 08/25/19 Attend Phys: Britany Wyatt MD Discharge: Date of : 73 Report #: [id number] THIS REPORT FOR: //name// CC: Graciela Wyatt DATE OF SERVICE: 08/25/2019 CHIEF COMPLAINT: The patient is a 44-year-old female who has been followed in the pain clinic because of chronic pain involving her neck. She also has some upper back discomfort. She has had pain and discomfort for a number of years. Has not noticed any significant change since we saw her last. Overall, she feels her medications are helpful. They continue to make her pain manageable. Rates her pain as a 1/10 today. Feels that the [place] as well as the meloxicam are helpful. She feels that things are 70-80% improved with their use. She has returned today for renewal of the medications. She would like to continue them. Continue their use. ALLERGIES: PHENYLPROPANOLAMINE, PSEUDOEPHEDRINE, DIPHENHYDRAMINE, TRIPELENNAMINE, TRIPROLIDINE, CLEMASTINE, SULFA, MORPHINE, PREDNISONE, LASIX, FENTANYL, MENTHOL. PAIN CLINIC ASSESSMENT AND PQRS: 1. The patient is not being treated for osteoarthritis or rheumatoid arthritis. 2. Height 5 feet 6 inches, weight 186 pounds, BMI is 30. 3. Vital Signs: Blood pressure 147/81, heart rate 70, respiratory rate 16, room air saturation 98%, temperature 97.7. 4. Pain intensity 12/09. 5. Fall history: The patient has not fallen in the last 3 months. 6. Blood thinner. The patient is not on a blood thinning medication. 7. Hypertension. The patient is being treated for hypertension. 8. Opioids greater than 6 weeks. The [facility]. 9. Risk assessment tool, low for opioid use. 10. Functional assessment tool. 11. Recreational drug use. The patient denies use of recreational drugs. 12. Tobacco: The patient denies use of tobacco. The patient stopped smoking 03/13/2019. 13. Alcohol: The patient occasionally drinks alcoholic beverages. PHYSICAL EXAMINATION: GENERAL: The patient is a well-developed, well-nourished white female. Appears her stated age. She is alert and oriented x 3. Her affect is appropriate. Speech is fluent. HEENT: Normocephalic, atraumatic. Extraocular eye muscles are intact. Sclerae nonicteric. [place]uc[place] [address] PAIN MANAGEMENT CONSULTATION Name: TANGDOMINGO Room: [facility]#: [id number] Admission: 08/25/19 Attend Phys: Britany Wyatt MD Discharge: Date of : 73 Report #: [id number] NECK: Without adenopathy or JVD. The patient has some pain in the posterior portion of her neck. She has some pain in the occipital areas. Has a history of migraines. LUNGS: Clear to auscultation. HEART: Regular rate. ABDOMEN: Nontender. Bowel sounds present. EXTREMITIES: Upper extremity muscle strength judged to be 5/5 for the major muscle groups in the upper extremity. IMPRESSION: 1. History of cervical radiculopathy involving the cervical area and has been treated with epidural steroid injection in the past with beneficial results. 2. Pain with popping sensation in the neck with rotation. 3. Myofascial pain. 4. C5-C6 moderate disk space height and large posterior disk bulge with mass effect on the ventral cord. Both foramen are approximately moderately narrowed. The thecal sac is 0.6 cm AP. 5. C6-C7 [id number] degenerative disk space. Moderate size disk bulge demonstrating mass effect on the ventral cord. Both foramen are moderately narrowed. Thecal sac 0.7 cm AP. 6. C7-T1 facet and foramen appear normal. Thecal sac 0.9 cm AP. RECOMMENDATIONS: We discussed treatment options with the patient. Risks and benefits of the opioid medications were discussed. The patient feels these medications are helpful. She is aware that opioid medications can be problematic in some patients. She does not feel that she has an addiction to the medication. She has taken the medication as prescribed. She is not using it inappropriately. She will continue with her current use of meloxicam 15 mg 1 p.o. daily. She also will continue with hydrocodone 5 mg one p.o. q.4-6 hours. The patient receives 100 tablets for a month. She has been given a 2-month script. She will follow up in the near future. We would like to thank you for letting us participate in her care. We hope she continues to improve. By: [id number]. Puma Wyatt MD /ramón
== END ==
LOC: M.PC 04:52
DX: M50.122 Cervical disc disorder at C5-C6 level with radiculopathy (principal); M48.02 Spinal stenosis, cervical region; G89.29 Other chronic pain; I10 Essential (primary) hypertension; Z88.1 Allergy status to other antibiotic agents; Z88.2 Allergy status to sulfonamides; Z88.8 Allergy status to other drugs, medicaments and biological substances; Z79.891 Long term (current) use of opiate analgesic; Z79.899 Other long term (current) drug therapy; Z87.891 Personal history of nicotine dependence; Z72.89 Other problems related to lifestyle

== ENCOUNTER → 2019-10-20 | Outpatient (CLI) | payer OTHER ==
--- NOTE | 2019-11-01 09:09 | PAINCON ---
[address] [address] PAIN MANAGEMENT CONSULTATION Name: DOMINGO BECKWITH [id number] Admission: 10/20/19 Attend Phys: Britany Wyatt MD Discharge: Date of : 73 Report #: [id number] THIS REPORT FOR: //name// CC: Graciela Becerra Meng DO Graciela Wyatt DATE OF SERVICE: 10/20/2019 CHIEF COMPLAINT: Neck pain and mid back pain. HISTORY OF PRESENT ILLNESS: The patient is a 44-year-old female who has been followed in the pain clinic because of chronic cervical neck pain. The pain has been problematic for a number of years. She finds that use of [place] as well as meloxicam have been beneficial. Finds that these continue to help her pain remain manageable. She rates it as a 2-3/10 at this point. The weather has changed. It has been colder outside, cause some increased pain and discomfort. She has noticed 70-80% improvement in her pain with her current medical regimen. She has returned for renewal of her medications today. ALLERGIES: PHENYLPROPANOLAMINE, PSEUDOEPHEDRINE, DIPHENHYDRAMINE, TRIPELENNAMINE, TRIPROLIDINE, CLEMASTINE, SULFA, MORPHINE, PREDNISONE, LASIX, METHADONE, FENTANYL. PAIN CLINIC ASSESSMENT AND PQRS: 1. The patient is not being treated for osteoarthritis or rheumatoid arthritis. 2. Height 5 feet 6 inches, weight 185 pounds, BMI is 30. 3. Vital signs: Blood pressure 151/85, heart rate 77, respiratory rate 16, room air saturation 95%, temperature 98.3. 4. Pain intensity 2-3/10. 5. Fall history: The patient has not fallen in the last 3 months. 6. Blood thinner: The patient is not on a blood thinning medication. 7. Hypertension: The patient is being treated for hypertension. 8. Opioids greater than 6 weeks. 9. Risk assessment tool, low for opioid use. 10. Functional assessment tool. 11. Recreational drug use: The patient denies. 12. Tobacco: The patient stopped smoking 03/13/2019. 13. Alcohol: The patient occasionally drinks alcoholic beverage. PHYSICAL EXAMINATION: GENERAL: The patient is a well-developed, well-nourished white female. Appears her stated age. She is alert and oriented x 3. Her affect is appropriate. Speech is fluent. HEENT: Normocephalic, atraumatic. Extraocular eye muscles intact. Sclerae nonicteric. [place] [address] PAIN MANAGEMENT CONSULTATION Name: DOMINGO BECKWITH Room: [facility]#: [id number] Admission: 10/20/19 Attend Phys: Britany Wyatt MD Discharge: Date of : 73 Report #: [id number] NECK: Without adenopathy or JVD. The patient has some pain and discomfort in the posterior portion of her neck. She has some pain in the occipital area. LUNGS: Clear to auscultation. HEART: Regular rate. ABDOMEN: Nontender. Bowel sounds present. EXTREMITIES: Upper extremity muscle strength judged to be 5-/5 for the major muscle groups in the upper extremity. IMPRESSION: 1. History of cervical radiculopathy involving the cervical area, treated with epidural steroid injection in the past. 2. Pain with popping sensation in her neck with rotation. 3. Myofascial pain. 4. C5-C6 moderate disk space height and large posterior disk bulge with mass effect on the ventral cord. Bilateral foramen moderately narrowed, thecal sac 0.6 cm AP. 5. C6-C7 moderate to severe degenerative disk space, thecal sac 0.7 cm AP. 6. C7-T1 facet and foramen are normal, thecal sac 0.9 cm. RECOMMENDATIONS: We discussed treatment options with the patient. At this juncture, the patient continues to have pain and discomfort in the neck area. It waxes and wanes. At this juncture, we will continue with her current medical regimen. Risks and benefits of opioid use were discussed. She is aware that opioid medications can become less effective as time goes on, secondary to development of tolerance. Overall, she feels medications are working reasonably well. She is not having any real problems with the GI component. She will continue with her medications as prescribed. She keeps her medications in a guarded area. She is aware that 70,000 people last year as a result of opioid overdosing. A script for her medications have been rewritten. She will continue with hydrocodone 5 mg one p.o. 4-6 hours 100 tablets per month and a 2-month lot has been provided. The patient will call us if she has any concerns. <ELECTRONICALLY SIGNED> By: Britany Wyatt MD 11/01/19 0909 [id number]. Puma Wyatt MD /nt
== END ==
LOC: M.PC 05:09
DX: M50.122 Cervical disc disorder at C5-C6 level with radiculopathy (principal); M48.02 Spinal stenosis, cervical region; G89.29 Other chronic pain; I10 Essential (primary) hypertension; Z88.1 Allergy status to other antibiotic agents; Z88.5 Allergy status to narcotic agent; Z88.2 Allergy status to sulfonamides; Z88.8 Allergy status to other drugs, medicaments and biological substances; Z79.899 Other long term (current) drug therapy; Z79.891 Long term (current) use of opiate analgesic

== ENCOUNTER → 2019-12-15 | Outpatient (CLI) | payer OTHER ==
--- NOTE | ~2019-12-15 | PAINCON ---
[address] [address] PAIN MANAGEMENT CONSULTATION Name: DOMINGO BECKWITH Room: [facility] Rm#: [id number] Admission: 12/15/19 Attend Phys: Britany Wyatt MD Discharge: Date of : 73 Report #: [id number] THIS REPORT FOR: //name// CC: CHELSEA KILLIAN DO Chelsea Wyatt DATE OF SERVICE: 12/15/2019 CHIEF COMPLAINT: Pain in the neck and down into the arms. HISTORY: The patient is a 44-year-old female who has been followed in the pain clinic. For number of years, she has been experiencing pain and discomfort in her neck. She finds that nonsteroidal anti-inflammatory medications like meloxicam have been helpful. She has pain, which is manageable with her current medical regimen. Rates her pain about 80% improved with her current use of medications. Rates her pain as a 0 today. She notes that when the weather changes, this can significantly influence amount of pain that she is having. She has returned today for renewal of her medications. She continues to have pain in the upper back as well as in the neck. ALLERGIES: PHENYLPROPANOLAMINE, PSEUDOEPHEDRINE, DIPHENHYDRAMINE, TRIPELENNAMINE, TRIPROLIDINE, CLEMASTINE, SULFA, MORPHINE, PREDNISONE, LASIX, METHADONE, FENTANYL. PAIN CLINIC ASSESSMENT AND PQRS: 1. The patient is not being treated for rheumatoid arthritis. She does have some osteoarthritic changes in her neck. 2. Height 5 feet 6 inches, weight 188 pounds, BMI is 34.0. 3. Vital signs: Blood pressure 127/87, heart rate 78, respiratory rate 16, room air saturation 97%, temperature 98.1. 4. Pain intensity is 0/10 today. 5. Fall history: The patient has not fallen in the last 3 months. 6. Blood thinner. The patient is not on a blood thinning medication. 7. Hypertension. The patient is being treated for hypertension. 8. Opioids greater than 6 weeks. The patient [facility]. 9. Functional assessment tool: Reviewed. 10. Recreational drug use: The patient denies. 11. Tobacco: The patient stopped smoking 03/13/2019. 12. Alcohol. The patient occasionally drinks an alcoholic beverage. PHYSICAL EXAMINATION: GENERAL: The patient is a well-developed, well-nourished white female. Appears her stated age. She is alert and oriented x 3. Her affect is appropriate[place] [address] PAIN MANAGEMENT CONSULTATION Name: CORTNEY BECKWITHJOANN Mitchell Room: [facility]#: [id number] Admission: 12/15/19 Attend Phys: Britany Wyatt MD Discharge: Date of : 73 Report #: [id number] HEENT: Normocephalic, atraumatic. Extraocular eye muscles intact. Sclerae nonicteric. Mucous membranes are moist. NECK: Without adenopathy or JVD. The patient has pain in the posterior portion of her neck. She has had pain in the occipital area. LUNGS: Clear to auscultation. HEART: Regular rate. ABDOMEN: Nontender. Bowel sounds present. EXTREMITIES: Upper extremity muscle strength judged to be 5/5 for the major muscle groups in the upper extremity. IMPRESSION: 1. History of cervical radiculopathy involving the cervical area, treated with epidural steroid injections in the past. 2. Pain in the neck with rotation and certain flexion and extension of the neck. 3. Myofascial pain. 4. C5-C6 moderate disk space height and large posterior disk bulge with mass effect on the ventral cord. Bilateral foramens are moderately narrowed, thecal sac 0.6 cm AP. 5. C6-C7 moderate to severe degenerative disk space, thecal sac 0.7 cm AP. 6. C7-T1 facet and foramens are normal. Thecal sac is 0.9 cm. RECOMMENDATIONS: We discussed treatment options with the patient. At this juncture, she feels that her pain is being held in check with her medications. Rates her pain as 0/10 today. She will continue with her medication as prescribed. She will continue with Meloxicam. Should she note some GI upset, she will stop taking this medication. She will also continue with use of [place] 5 mg one p.o. q. 4-6 hours p.r.n. She is about 80% improvement with her medications. Today, this is an usual day as she rates her pain as a 0/10. She is not having any side effects from her opioid medication, she is thinking clearly. We will continue with her medications. She is aware that opioid medications can become less effective over time secondary to development of tolerance. She will call us if she has any concerns. We will renew her medications for the next 2 months. A script for meloxicam 15 mg 1 p.o. daily has been written. She will also continue with hydrocodone 5/325 one p.o. q. 4-6 hours, total of 100 pills for the next 2 months. We would like to thank you for letting us participate in her care. We hope she continues to improve. By: [id number]. Puma Wyatt MD /ramón
== END ==
LOC: M.PC 10:14
DX: M50.122 Cervical disc disorder at C5-C6 level with radiculopathy (principal); M79.18 Myalgia, other site

== ENCOUNTER → 2020-02-09 | Outpatient (CLI) | payer OTHER ==
--- NOTE | 2020-02-24 09:00 | PAINCON ---
[address] [address] PAIN MANAGEMENT CONSULTATION Name: DOMINGO BECKWITH Room: [facility] Rm#: [id number] Admission: 02/09/20 Attend Phys: Britany Wyatt MD Discharge: Date of : 73 Report #: [id number] THIS REPORT FOR: //name// cc: Graciela Plummer Kathleen M. DO ~ THIS REPORT FOR: //name// CC: Graciela Becerra Meng DO Graciela Wyatt DATE OF SERVICE: 02/09/2020 CHIEF COMPLAINT: Continued pain in the arm and neck area. HISTORY: The patient is a 44-year-old female who has been followed in the pain clinic because of chronic pain in her upper neck and back. Her pain continues to be problematic. She feels that the medications are helpful. Feels that the symptoms may be getting a little worse. She rates her pain as a 2-3/10. Feels that it is about 60-70% improved with this current regimen. She feels that another epidural steroid injection in the future might be beneficial and she would like to consider that at the next visit. ALLERGIES: PHENYLPROPANOLAMINE, PSEUDOEPHEDRINE, DIPHENHYDRAMINE, TRIPELENNAMINE, TRIPROLIDINE, CLEMASTINE, SULFA, MORPHINE, PREDNISONE, LASIX, METHADONE, FENTANYL. PAIN CLINIC ASSESSMENT AND PQRS: 1. The patient is not being treated for rheumatoid arthritis. She does have some osteoarthritic changes in her neck. 2. Height 5 feet 6 inches, weight 190 pounds, BMI is 30. 3. Vital signs: Blood pressure 140/74, heart rate 83, respiratory rate 16, room air saturation 98%, temperature 97.4. 4. Pain intensity 2-3/10. 5. Fall history: The patient has not fallen since we saw her last. 6. Blood thinner. The patient is not on a blood thinning medication. 7. Hypertension. The patient is being treated for hypertension. 8. Opioids greater than 6 weeks. The patient received medication from [facility]. 9. Risk assessment tool, low. 10. Recreational drug use: The patient denies. 11. Tobacco: The patient had stopped smoking, 03/13/2019. 12. Alcohol: The patient occasionally drinks an alcoholic beverage. PHYSICAL EXAMINATION: GENERAL: The patient is a well-developed, well-[place] [address] PAIN MANAGEMENT CONSULTATION Name: DOMINGO BECKWITH Room: [facility]#: [id number] Admission: 02/09/20 Attend Phys: Britany Wyatt MD Discharge: Date of : 73 Report #: [id number] her stated age. She is alert and oriented x 3. Her affect is appropriate. Speech is fluent. HEENT: Normocephalic, atraumatic. Extraocular eye muscles intact. Sclerae are nonicteric. Mucous membranes are moist. NECK: Without adenopathy or JVD. The patient has pain in the posterior portion of her neck. She has pain in the occipital areas. LUNGS: Clear to auscultation. HEART: Regular rate. ABDOMEN: Nontender. Bowel sounds present. MUSCULOSKELETAL: Upper extremity muscle strength judged to be 5-/5 for the major muscle groups in the upper extremity. Lower extremity muscle strength 5/5. The patient is without lordosis, scoliosis or kyphosis. IMPRESSION: 1. History of cervical radiculopathy involving the cervical area, treated with epidural steroid injections in the past. 2. Pain in the neck with pain radiating down with flexion and extension of her neck. 3. Myofascial pain. 4. C5-C6 moderate disk height and large posterior disk bulge with mass effect on the ventral cord. Bilateral foramens are moderately narrowed. Thecal sac is 0.6 cm AP. 5. C6-C7 moderate to severe degenerative disk space, thecal sac is 0.7 cm AP. 6. C7-T1 facet and foramen are normal. Thecal sac 0.9 cm. RECOMMENDATIONS: We discussed treatment options with the patient. At this juncture, we will continue with her medications. Script for the medications has been provided. She will continue with the medications. She feels that the meloxicam is helpful. She will continue with 15 mg 1 p.o. daily. She will also continue with hydrocodone 10/325 one p.o. 4-6 hours p.r.n. Total of 100 tablets have been provided. The patient will call us if she has any concerns. She would like to proceed with a cervical epidural steroid at the next visit. We will pre-cert her with her insurance carrier. We would like to thank you for letting us participate in her care. We hope she continues to improve. <ELECTRONICALLY SIGNED> By: Britany Wyatt MD 02/24/20 0900 [id number]. Puma Wyatt MD /nt
== END ==
LOC: M.PC 05:58
DX: M50.323 Other cervical disc degeneration at C6-C7 level (principal); M48.02 Spinal stenosis, cervical region; M79.18 Myalgia, other site

== ENCOUNTER → 2020-04-05 | Outpatient (CLI) | payer OTHER | END | disposition home or self-care (01) | LOC: M.PC 01:52 | DX: M54.12 Radiculopathy, cervical region (principal) ==

== ENCOUNTER → 2020-06-14 | Outpatient (CLI) | payer OTHER ==
[~2020-06-14] MED LIST changes: +NEURONTIN 300M300 M2 PO
--- NOTE | 2020-06-22 09:02 | PAINCON ---
[address] [address] PAIN MANAGEMENT CONSULTATION Name: DOMINGO BECKWITH [id number] Admission: 06/14/20 Attend Phys: Britany Wyatt MD Discharge: Date of : 73 Report #: [id number] THIS REPORT FOR: //name// cc: Chelsea Killian Kathleen M. DO ~ THIS REPORT FOR: //name// CC: CHELSEA KILLIAN DO Chelsea Wyatt DATE OF SERVICE: 06/14/2020 CHIEF COMPLAINT: Neck and upper back pain. HISTORY: The patient is a 45-year-old female who has been followed in the Pain Clinic. As you may recall, she suffers from cervical radicular pain. She has undergone epidural steroid injections in the past. These have been beneficial. Last injection was helpful. This was in March. She has returned today for renewal of her medications. She has had no complication from its use. She feels the pain and medications together have improved her condition. She really feels things are about 90% improved. She does not have any significant changes. She would like to continue with the [place] medication and the meloxicam. She is not having any GI complaints. She has taken the medication as prescribed. ALLERGIES: PHENYLPROPANOLAMINE, PSEUDOEPHEDRINE, DIPHENHYDRAMINE, TRIPELENNAMINE, TRIPROLIDINE, CLEMASTINE, SULFA, MORPHINE, PREDNISONE, LASIX, METHADONE, FENTANYL. CURRENT MEDICATIONS: Hydrocodone 5 mg 1 p.o. q. 4-6 hours p.r.n., meloxicam 15 mg, venlafaxine 75 mg, vitamin B12, biotin 5 mg, vitamin D3 400 units, 2000 units every other day, and tamoxifen 20 mg. PAIN CLINIC ASSESSMENT/PQRS: 1. The patient is not being treated for rheumatoid arthritis. She does have some arthritic changes in her neck. Height 5 feet 6 inches, weight 185 pounds, BMI is 30. 2. Pain intensity, 12/09. 3. Vital signs: Blood pressure 141/85, heart rate 80, respiratory rate 16, room air saturation 98%, and temperature 98.8. 4. Fall history: The patient has not fallen in the last 3 months. 5. Blood thinner. The patient is not on a blood thinning medication. 6. Hypertension. The patient is being treated for hypertension. 7. Opioids greater than 6 weeks. The patient receives medication from the Pain Clinic. 8. Risk assessment tool, [place] [address] PAIN MANAGEMENT CONSULTATION Name: DOMINGO BECKWITH [id number] Admission: 06/14/20 Attend Phys: Britany Wyatt MD Discharge: Date of : 73 Report #: [id number] 9. Recreational drug use. The patient denies. 10. Tobacco: The patient stopped smoking on 03/13/2019. 11. Alcohol: The patient occasionally drinks alcoholic beverages. PHYSICAL EXAMINATION: GENERAL: The patient is a well-developed, well-nourished white female. Appears her stated age. She is alert and oriented x 3. Her affect is appropriate. Speech is fluent. HEENT: Normocephalic, atraumatic. Extraocular eye muscles intact. Sclerae nonicteric. Mucous membranes are moist. The patient is wearing a mask. NECK: Without adenopathy or JVD. HEART: Regular rate. LUNGS: Clear to auscultation. MUSCULOSKELETAL: The patient has some discomfort in her neck. Has some discomfort in the occipital area. Muscle strength is judged to be 5-/5 for the major muscle groups in the upper extremity. Lower extremity muscle strength is 5/5 for the major muscle groups. The patient is without significant scoliosis, kyphosis or lordosis. IMPRESSION: 1. History of cervical radiculopathy, improving after last cervical epidural steroid injection in 03/2020. 2. Pain in the neck, which has been exacerbated with flexion and extension. 3. Myofascial pain. 4. C5-C6 moderate disk height with large posterior disk bulge with mass effect on the ventral cord. 5. Bilateral foramen are moderately narrowed. The thecal sac is 0.6 cm AP. 6. C6-C7 [id number] degenerative disk space. The thecal sac is 0.7 cm AP. 7. C7-T1 facet and foramen are normal. The thecal sac is 0.9 cm. RECOMMENDATIONS: We discussed the treatment with the patient. At this point, things seems to be going well. There were no complications from the epidural steroid injection in the cervical area. She would like to continue with her hydrocodone medication. A script for this medication has been written. The patient will also continue with meloxicam 15 mg 1 p.o. daily. She will monitor her GI tract. If she notes GI irritation, we will stop or decrease the amount of meloxicam she is using. She is not showing signs of addiction. She has taken her medication as prescribed. She is able to engage in activities of daily living better since the last injection. She feels that things are about 90% improved. We will continue with her medications. A script for the medications of [place] 5 mg one q. 4-6 hours have been written. She also continues with a meloxicam and the [place] [address] PAIN MANAGEMENT CONSULTATION Name: TANGDOMINGO Stephen Room: [facility]#: [id number] Admission: 06/14/20 Attend Phys: Britany Wyatt MD Discharge: Date of : 73 Report #: [id number] We would like to thank you for letting us participate in her care. We hope she continues to improve. <ELECTRONICALLY SIGNED> By: Britany Wyatt MD 06/22/20 0902 [id number]. Puma Wyatt MD /nt
== END ==
LOC: M.PC 05-31 10:20
PROVIDERS: ATTEND Anesthesiology Pain Medicine
DX: M50.222 Other cervical disc displacement at C5-C6 level (principal); M79.10 Myalgia, unspecified site; F11.20 Opioid dependence, uncomplicated; I10 Essential (primary) hypertension; Z88.8 Allergy status to other drugs, medicaments and biological substances; Z79.899 Other long term (current) drug therapy

== ENCOUNTER → 2020-08-09 | Outpatient (CLI) | payer OTHER ==
[~2020-08-09] MED LIST changes: -NEURONTIN 300M300 M2 PO
--- NOTE | 2020-08-23 08:38 | PAINCON ---
[address] [address] PAIN MANAGEMENT CONSULTATION Name: DOMINGO BECKWITH Stephen [facility]: [facility] Abdalla#: [id number] Admission: 08/09/20 Attend Phys: Britany Wyatt MD Discharge: Date of : 73 Report #: [id number] THIS REPORT FOR: //name// cc: Graciela Plummer Kathleen M. DO ~ THIS REPORT FOR: //name// CC: Graciela Wyatt DATE OF SERVICE: 08/09/2020 CHIEF COMPLAINT: Neck and upper back pain. HISTORY: The patient is a 45-year-old female who has been followed in the Pain Clinic. She suffers from cervical radicular pain. She has undergone a cervical epidural steroid injection in the past. She returns today for renewal of her medications. She rates pain as 1/10 today. She did move some boxes about a month ago and noticed some increased pain, but overall things are going reasonably well. She would like to continue with use of the hydrocodone medication. She feels that the meloxicam medication is helpful. She feels that with her medications and with the previous injections, her pain is about 90% improved. ALLERGIES: PHENYLPROPANOLAMINE, PSEUDOEPHEDRINE, DIPHENHYDRAMINE, TRIPELENNAMINE, TRIPROLIDINE, CLEMASTINE, SULFA, MORPHINE, PREDNISONE, LASIX, METHADONE, AND FENTANYL. CURRENT MEDICATIONS: Hydrocodone 5/325 one p.o. every 4-6 hours, meloxicam 15 mg, venlafaxine 75 mg, vitamin B12, biotin 5 mg, vitamin D3 400 units, and tamoxifen 20 mg. PAIN CLINIC ASSESSMENT AND PQRS: 1. The patient is not being treated for rheumatoid arthritis. She does have some osteoarthritic changes in her neck. 2. Height 5 feet 6 inches, weight 186 pounds, BMI is 29. 3. Vital signs: Blood pressure is 138/80, heart rate 78, respiratory rate 16, room air saturation 96%, and temperature 98.4. 4. Pain intensity 12/09. 5. Fall history: The patient has not fallen in the last 3 months. 6. Blood thinner. The patient is not on a blood thinning medication. 7. Hypertension. The patient is being treated for hypertension. 8. Opioids greater than 6 weeks. The patient receives medication [facility]. 9. Risk assessment tool, low for opioid use. 10. Recreational drug use. [place] [address] PAIN MANAGEMENT CONSULTATION Name: CORTNEY BECKWITHJOANN Mitchell Room: [facility]#: [id number] Admission: 08/09/20 Attend Phys: Britany Wyatt MD Discharge: Date of : 73 Report #: [id number] 11. Tobacco: The patient stopped smoking on 03/13/2019. 12. Alcohol: The patient occasionally drinks alcoholic beverages. PHYSICAL EXAMINATION: GENERAL: The patient is a well-developed, well-nourished white female. Appears her stated age. She is alert and oriented x 3. Her affect is appropriate. Speech is fluent. HEENT: Normocephalic, atraumatic. Extraocular eye muscles intact. Sclerae nonicteric. Mucous membranes are moist. NECK: Without adenopathy or JVD. HEART: Regular rate. LUNGS: Clear to auscultation. MUSCULOSKELETAL: The patient without significant scoliosis, kyphosis or lordosis. The patient does have some occipital pain. Notes muscle strength judged to be 5-/5 for the major muscle groups in the upper extremity. Lower extremity muscle strength is 5/5 for the major muscle groups. The patient without significant scoliosis, kyphosis or lordosis. IMPRESSION: 1. History of cervical radiculopathy, improved after last cervical epidural steroid injection 03/2020. 2. Pain in the neck, which has been exacerbated with flexion and extension. 3. Myofascial pain. 4. C5-C6 moderate disk height with large posterior disk bulge with mass effect upon the ventral spinal cord. 5. Bilateral foramen and moderately narrowed area of the thecal sac at 0.6 cm AP. 6. C6-C7 qehpumje-lf-vjtgqo degenerative disk space, thecal sac at 0.7 cm AP. 7. C7-T1 facet and foramen normal. Thecal sac at 0.9 cm. RECOMMENDATIONS: We discussed treatment options with the patient. At this juncture, we will continue with her current medical management. She feels that the hydrocodone medication is helpful. She is not complaining of any problems with GI discomfort from the meloxicam. A script for one p.o. total of 100 tablets have been provided. The patient will call us if she has any concerns. We would like to thank you for letting us participate in her care. We hope she continues to improve. <ELECTRONICALLY SIGNED> By: Britany Wyatt MD 08/23/20 0838 [id number]. Puma Wyatt MD /nt
== END ==
LOC: M.PC 10:40
PROVIDERS: ATTEND Anesthesiology Pain Medicine
DX: M50.20 Other cervical disc displacement, unspecified cervical region (principal); M47.812 Spondylosis without myelopathy or radiculopathy, cervical region; M79.10 Myalgia, unspecified site; Z87.39 Personal history of other diseases of the musculoskeletal system and connective tissue; Z88.8 Allergy status to other drugs, medicaments and biological substances; Z79.899 Other long term (current) drug therapy

== ENCOUNTER → 2020-09-25 | Outpatient (CLI) | payer OTHER ==
--- NOTE | 2020-09-26 15:45 | PAINCON ---
[address] [address] PAIN MANAGEMENT CONSULTATION Name: TANGDOMINGO Room: [facility] Rm#: [id number] Admission: 09/25/20 Attend Phys: Britany Wyatt MD Discharge: Date of : 73 Report #: [id number] THIS REPORT FOR: //name// cc: Graciela Plummer Kathleen M. DO ~ CC: Graciela Wyatt DATE OF SERVICE: 09/25/2020 CHIEF COMPLAINT: Neck pain down into the left and right side. HISTORY: The patient is a 45-year-old female, who has been followed in the Pain Clinic because of cervical radiculopathy. She has noted over the last few weeks worsening of pain and discomfort. She rates it as 5-6/10. She notes that she has increased pain and discomfort while sitting. She notes that the pain was on the right side and now affects both the left and the right side. She was out mattress shopping. She is not sure whether trying out the mattresses, getting up and moving around has stirred this up or not. At this juncture, the pain has risen to a level that she would like to proceed with a cervical epidural steroid injection. ALLERGIES: SULFA, MORPHINE, PREDNISONE, LASIX, FENTANYL, METHADONE, PSEUDOEPHEDRINE, DIPHENHYDRAMINE, TRIPROLIDINE, TRIPELENNAMINE, PHENYLPROPANOLAMINE. CURRENT MEDICATIONS: Hydrocodone 5/325 one p.o. q. 4-6 hours, meloxicam 15 mg, venlafaxine 75 mg, vitamin B12, biotin 5 mg, vitamin D3 400 units, tamoxifen 20 mg. PAIN CLINIC ASSESSMENT AND PQRS: 1. The patient is not being treated for rheumatoid arthritis. She does have some osteoarthritic changes in her neck. 2. Height 5 feet 6 inches, weight 186 pounds, BMI is 30. 3. Vital signs: Blood pressure 150/83, heart rate 75, respiratory rate 16, room air saturation 99%, temperature 97.2. 4. Pain intensity: 5-6/10. 5. Fall history: The patient has not fallen in the last 3 months. 6. Blood thinner: The patient is not on a blood thinning medication. 7. Hypertension: The patient is being treated for hypertension. 8. Opioids greater than 6 weeks: The patient receives medication [facility]. 9. Risk assessment tool: Low for opioids. 10. Recreational drug use: The patient denies. 11. Tobacco: The patient stopped smoking on 03/13/2019. 12. Alcohol: The [place] [address] PAIN MANAGEMENT CONSULTATION Name: DOMINGO BECKWITH Room: [facility]#: [id number] Admission: 09/25/20 Attend Phys: Britany Wyatt MD Discharge: Date of : 73 Report #: [id number] PHYSICAL EXAMINATION: GENERAL: The patient is a well-developed, well-nourished, white female. Appears her stated age. She is alert and oriented x 3. Her affect is appropriate. Speech is fluent. HEENT: Normocephalic, atraumatic. Extraocular eye muscles intact. Sclerae nonicteric. Mucous membranes are moist. NECK: Without adenopathy. The patient has a facial covering. HEART: Regular rate. LUNGS: Clear to auscultation. MUSCULOSKELETAL: The patient is without significant scoliosis, kyphosis or lordosis. The patient does have some occipital pain. Notes pain in the posterior portion of her neck and in the area of the trapezius bilaterally. IMPRESSION: 1. History of cervical radiculopathy, improved after epidural steroid injections in the past. 2. Pain in the neck, which has been exacerbated with flexion and extension and activities of daily living. 3. Myofascial pain. 4. C5-C6 moderate disk height with large posterior disk bulge with mass effect upon the ventral spinal cord. 5. Bilateral foramen and moderately narrowed area of the thecal sac to 0.6 mm AP. 6. C6-C7 moderate to severe degenerative disk space, thecal sac 0.7 cm AP. 7. C7-T1 facet and foramen normal, thecal sac 0.9 cm. RECOMMENDATIONS: We discussed treatment options with the patient. Risks and benefits of a cervical epidural steroid injection were discussed. Possible complications of the procedure, which could include but are not limited to infection, worsening of pain, no improvement in pain, nerve damage, and bleeding were discussed and the patient elects to proceed. PROCEDURE NOTE: The patient was taken to the procedure area. She was then assisted in getting on the examination table. Her back was sterilely prepped with betadine solution. 0.25% bupivacaine was infiltrated at the C7-T1 interspace. A 17-gauge Tuohy with loss of resistance technique was used to gain access to the epidural space. There was no CSF, heme or paresthesia. A total of 120 mg triamcinolone was slowly injected. Fluoroscopy corroborated appropriate placement of the needle. The patient remained in the Pain Clinic for an appropriate amount of time. She will follow up in the future as needed. A script for hydrocodone 5/325 one p.o. q.i.d. has been written. The patient will call us if [place] [address] PAIN MANAGEMENT CONSULTATION Name: DOMINGO BECKWITH Room: [facility]#: [id number] Admission: 09/25/20 Attend Phys: Britany Wyatt MD Discharge: Date of : 73 Report #: [id number] We would like to thank you for letting us participate in her care. <ELECTRONICALLY SIGNED> By: Britany Wyatt MD 09/26/20 1545 [id number] Wyatt MD /nt
== END | disposition home or self-care (01) ==
LOC: M.PC 11:20
PROVIDERS: ATTEND Anesthesiology Pain Medicine
DX: M54.2 Cervicalgia (principal); M50.123 Cervical disc disorder at C6-C7 level with radiculopathy; Z88.2 Allergy status to sulfonamides; Z88.6 Allergy status to analgesic agent; Z91.040 Latex allergy status; Z88.1 Allergy status to other antibiotic agents; Z88.8 Allergy status to other drugs, medicaments and biological substances; Z79.899 Other long term (current) drug therapy

== ENCOUNTER → 2020-10-23 | Outpatient (CLI) | payer OTHER ==
--- NOTE | 2020-11-01 14:42 | PAINCON ---
[address] [address] PAIN MANAGEMENT CONSULTATION Name: DOMINGO BECKWITH Room: [facility] Rm#: [id number] Admission: 10/23/20 Attend Phys: Britany Wyatt MD Discharge: Date of : 73 Report #: [id number] THIS REPORT FOR: //name// cc: Graciela Plummer Kathleen M. DO ~ CC: Graciela Wyatt DATE OF SERVICE: 10/23/2020 CHIEF COMPLAINT: Neck pain. HISTORY: The patient is a 45-year-old female who has been followed in the pain clinic because of cervical radiculopathy. She has undergone epidural steroid injections in the past and found them beneficial. Her pain level has increased at this juncture. She rates her pain as a 4/10. She is experiencing pain that continues to be problematic. She notes pain is worse with activities. Notes increased discomfort when she is turning her head. Finds medications are helpful. Has used heat as well as rest to help with the discomfort. She has returned to the pain clinic with the hopes of undergoing a cervical epidural steroid injection to help decrease the discomfort. ALLERGIES: SULFA, MORPHINE, PREDNISONE, LASIX, FENTANYL, METHADONE, PSEUDOEPHEDRINE, DIPHENHYDRAMINE, TRIPROLIDINE, TRIPELENNAMINE, PHENYLPROPANOLAMINE. CURRENT MEDICATIONS: Hydrocodone 5/325 one p.o. every 4-6 hours, meloxicam 15 mg, venlafaxine 75 mg, vitamin B12, biotin 5 mg, vitamin D3 400 units, tamoxifen 20 mg. PAIN CLINIC ASSESSMENT AND PQRS: 1. The patient is not being treated for rheumatoid arthritis. She does have some osteoarthritic changes in her neck. 2. Height 5 feet 6 inches, weight 187 pounds, BMI is 30. 3. Vital signs: Blood pressure 142/73, heart rate 80, respiratory rate 16, room air saturation 98%, temperature 97.3. 4. Pain intensity 03/09. 5. Fall history: The patient has not fallen in the last 3 months. 6. Blood thinner. The patient is not on a blood thinning medication. 7. Hypertension. The patient is being treated for hypertension. 8. Opioids greater than 6 weeks. The patient receives medication from the pain clinic. 9. Risk assessment tool, low for opioid use. 10. Functional assessment tool: The patient denies. 11. Tobacco: The patient stopped smoking on 03/13/2019. 12. Alcohol. The patient [place] [address] PAIN MANAGEMENT CONSULTATION Name: DOMINGO BECKWITH Room: [facility]#: [id number] Admission: 10/23/20 Attend Phys: Britany Wyatt MD Discharge: Date of : 73 Report #: [id number] PHYSICAL EXAMINATION: GENERAL: The patient is a well-developed, well-nourished white female. Appears her stated age. She is alert and oriented x 3. Her affect is appropriate. Speech is fluent. HEENT: Normocephalic, atraumatic. Extraocular eye muscles intact. Sclerae nonicteric. Mucous membranes are moist. NECK: Without adenopathy or JVD. The patient does complain of some pain and discomfort in the neck area with pain that radiates down to her arm. The patient has facial covering in place. HEART: Regular rate. LUNGS: Clear. MUSCULOSKELETAL: The patient without significant scoliosis, kyphosis or lordosis. The patient does have some pain in the occipital area. Has pain in the posterior portion of her neck and in the area of the trapezius areas bilaterally. IMPRESSION: 1. History of cervical radiculopathy, improved with epidural steroid injection in the past. 2. Pain in the neck, which is exacerbated with flexion, extension, and activities of daily living. 3. Myofascial pain. 4. C5-C6 moderate disk height with large posterior disk bulge with mass effect upon ventral spinal cord. 5. Bilateral foramen and moderately narrowed area of the thecal sac to 0.6 mm. 6. C6-C7 moderate to severe degenerative disk space, thecal sac is 0.7 cm AP. 7. C7/T1 facet and foraminal normal. Thecal sac 0.9 cm. RECOMMENDATIONS: We discussed treatment options with the patient. Risks and benefits of a cervical epidural steroid injection were discussed. Possible complications of the procedure, which could include but are not limited to infection, worsening pain, no improvement in pain, nerve damage and bleeding were discussed. We discussed the problems with COVID-19. Steroids can decrease one's immune response. Should the patient become infected, she may have a more difficult time with the virus. She elects to proceed. PROCEDURE NOTE: The patient was taken to the procedure area. She was then assisted in getting on the examination table. A pillow was placed under her shoulders. Her neck was sterilely prepped in the posterior area. A 0.25% bupivacaine was infiltrated at the C7-T1 interspace. A 25-gauge needle was used to anesthetize the area. A 17-gauge Tuohy with loss of resistance technique was used to gain access to the epidural space. There was no CSF, heme or paresthesia. Total of 120 mg triamcinolone was injected. The patient tolerated the procedure well. She remained in the Pain Clinic for an appropriate amount of time. She will follow up in the [place] [address] PAIN MANAGEMENT CONSULTATION Name: DOMINGO BECKWITH Room: [facility]#: [id number] Admission: 10/23/20 Attend Phys: Britany Wyatt MD Discharge: Date of : 73 Report #: [id number] We would like to thank you for letting us participate in her care. We hope she continues to improve. <ELECTRONICALLY SIGNED> By: Britany Wyatt MD 11/01/20 [id number]. Puma Wyatt MD /nt
== END | disposition home or self-care (01) ==
LOC: M.PC 10:40
PROVIDERS: ATTEND Anesthesiology Pain Medicine
DX: M50.222 Other cervical disc displacement at C5-C6 level (principal); M48.02 Spinal stenosis, cervical region; I10 Essential (primary) hypertension; Z98.890 Other specified postprocedural states; Z79.899 Other long term (current) drug therapy; Z87.891 Personal history of nicotine dependence; Z88.2 Allergy status to sulfonamides; Z91.040 Latex allergy status; Z88.8 Allergy status to other drugs, medicaments and biological substances

== ENCOUNTER → 2020-11-20 | Outpatient (CLI) | payer OTHER ==
[~2020-11-20] MED LIST changes: +NEURONTIN 300M300 M2 PO
== END ==
LOC: M.PC 09:54
PROVIDERS: ATTEND Anesthesiology Pain Medicine
DX: M47.22 Other spondylosis with radiculopathy, cervical region (principal); M79.18 Myalgia, other site; M54.2 Cervicalgia

== ENCOUNTER → 2021-01-15 | Outpatient (CLI) | payer OTHER | LOC: M.PC 09:40 | PROVIDERS: ATTEND Anesthesiology Pain Medicine | DX: M50.30 Other cervical disc degeneration, unspecified cervical region (principal); M79.10 Myalgia, unspecified site; Z87.39 Personal history of other diseases of the musculoskeletal system and connective tissue; Z88.8 Allergy status to other drugs, medicaments and biological substances; Z79.899 Other long term (current) drug therapy ==

== ENCOUNTER → 2021-03-12 | Outpatient (CLI) | payer OTHER ==
[~2021-03-12] MED LIST changes: +VITAMIN D3 COM1 EACH PO; +XARELTO20 MG PO
== END ==
LOC: M.PC 10:04
PROVIDERS: ATTEND Anesthesiology Pain Medicine
DX: I26.99 Other pulmonary embolism without acute cor pulmonale (principal); M79.10 Myalgia, unspecified site; M47.813 Spondylosis without myelopathy or radiculopathy, cervicothoracic region; Z87.39 Personal history of other diseases of the musculoskeletal system and connective tissue; Z88.8 Allergy status to other drugs, medicaments and biological substances; Z79.899 Other long term (current) drug therapy

== ENCOUNTER → 2021-05-07 | Outpatient (CLI) | payer OTHER ==
[~2021-05-07] MED LIST changes: +LYRICA 50 MG50 MG PO
== END ==
LOC: M.PC 08:00
PROVIDERS: ATTEND Anesthesiology Pain Medicine
DX: M50.122 Cervical disc disorder at C5-C6 level with radiculopathy (principal); M79.18 Myalgia, other site; M50.13 Cervical disc disorder with radiculopathy, cervicothoracic region; M48.03 Spinal stenosis, cervicothoracic region; Z79.891 Long term (current) use of opiate analgesic; Z79.899 Other long term (current) drug therapy

== ENCOUNTER → 2021-07-16 | Outpatient (CLI) | payer OTHER ==
[~2021-07-16] MED LIST changes: +BUTRANS1 EACH TRANSDERM
== END ==
LOC: M.PC 07-02 08:10
PROVIDERS: ATTEND Anesthesiology Pain Medicine
DX: M50.10 Cervical disc disorder with radiculopathy, unspecified cervical region (principal); M48.02 Spinal stenosis, cervical region; Z79.891 Long term (current) use of opiate analgesic; Z79.899 Other long term (current) drug therapy

== ENCOUNTER → 2021-09-10 | Outpatient (CLI) | payer OTHER | LOC: M.PC 09:51 | PROVIDERS: ATTEND Anesthesiology Pain Medicine | DX: I26.99 Other pulmonary embolism without acute cor pulmonale (principal); M50.123 Cervical disc disorder at C6-C7 level with radiculopathy; M47.22 Other spondylosis with radiculopathy, cervical region; M79.18 Myalgia, other site; Z88.8 Allergy status to other drugs, medicaments and biological substances; Z79.899 Other long term (current) drug therapy; Z85.3 Personal history of malignant neoplasm of breast; Z90.10 Acquired absence of unspecified breast and nipple; F17.200 Nicotine dependence, unspecified, uncomplicated ==

== ENCOUNTER → 2021-11-05 | Outpatient (CLI) | payer OTHER | LOC: M.PC 09:50 | PROVIDERS: ATTEND Anesthesiology Pain Medicine | DX: M47.22 Other spondylosis with radiculopathy, cervical region (principal); M54.2 Cervicalgia; M79.18 Myalgia, other site ==

== ENCOUNTER → 2021-12-31 | Outpatient (CLI) | payer OTHER ==
[~2021-12-31] MED LIST changes: +NARCAN4 MG NARES
== END ==
LOC: M.PC 10:23
PROVIDERS: ATTEND Anesthesiology Pain Medicine
DX: M50.123 Cervical disc disorder at C6-C7 level with radiculopathy (principal); M79.18 Myalgia, other site; M48.02 Spinal stenosis, cervical region; M47.22 Other spondylosis with radiculopathy, cervical region; Z87.891 Personal history of nicotine dependence; Z88.8 Allergy status to other drugs, medicaments and biological substances; Z79.899 Other long term (current) drug therapy